=== PATIENT | male | born 2000 | race African-American/Black ===

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

== ENCOUNTER → 2021-03-11 | Outpatient (CLI) | payer OTHER ==
[~2021-03-11] MED LIST: ALBU2.5V8 INH; HYDR-2765 PO
== END ==
LOC: LAB 11:39
PROVIDERS: ATTEND Orthopaedic Surgery
DX: Z01.812 Encounter for preprocedural laboratory examination (principal); S83.281A Other tear of lateral meniscus, current injury, right knee, initial encounter; Z20.822 Contact with and (suspected) exposure to COVID-19; X58.XXXA Exposure to other specified factors, initial encounter; Y93.89 Activity, other specified; Y92.89 Other specified places as the place of occurrence of the external cause; Y99.8 Other external cause status
CPT/HCPCS: U0003; U0005

== ENCOUNTER 2021-03-14 07:15 | Day surgery (SDC) | payer OTHER ==
[~2021-03-14] VITALS: Ht 175.3 cm; Wt 79.0 kg
[~2021-03-14 07:15] MED LIST changes: -ALBU2.5V8 INH; -HYDR-2765 PO; +HYDROmorphone 2 MG/ML VIAL IVP PRN; +IV RINGERS,LACTATED 1000ML 1,000 ML IV SCH; +MORPHINE SULFATE 2 MG/ML INJ. IVP PRN; +PROCHLORPERAZINE 10 MG/2 ML VIAL. IVP PRN; +fentaNYL PF VIAL 100 MCG/2 ML VIAL IVP PRN
[2021-03-14 07:43] VITALS: BP 125/68
[2021-03-14] MEDS ORDERED: ALBU2.5V8 INH (07:48)
[2021-03-14] MEDS ORDERED: HYDR-2765 PO (07:55)
--- NOTE | 2021-03-14 07:56 | DISCH ---
DISCHARGE INSTRUCTIONS Condition on Discharge Condition on Discharge: Stable Activity After Discharge Activity Instructions for Disc: Progressive ambulation Weight Bearing Status after Di: As tolerated Diet after Discharge Diet after Discharge: Regular Wound Incision Care Wound/Incision Care: Ice to area for comfort, Change dressing (Remove dressing in 2 days may then shower no soaking until sutures removed) Contacting the after DC Call your doctor for: Concerns you may have Follow-Up Follow up with: Dr. Madrid or Helene 7-10 days AMRIT MADRID MD Mar 14, 2021 07:56
[2021-03-14] MEDS ORDERED: SEVOFLURANE 61 TO 120 MINUTES. IH ONE (08:15)
[2021-03-14] MEDS ORDERED: MIDAZOLAM HCL/PF 2 MG/2 ML VIAL. ONE (08:15)
[2021-03-14] MEDS ORDERED: fentaNYL PF VIAL 100 MCG/2 ML VIAL ONE (08:15)
[2021-03-14] MEDS ORDERED: PROPOFOL 10 MG/ML (20ML) VIAL. IV ONE (08:16)
[2021-03-14] MEDS ORDERED: ONDANSETRON PF 4 MG/2 ML VIAL. ONE ×2 (08:16)
[2021-03-14] MEDS ORDERED: LIDOCAINE 2% PF 5 ML VIAL. ONE (08:16)
[2021-03-14] MEDS ORDERED: KETOROLAC 30 MG/ML VIAL. ONE (08:16)
[2021-03-14] MEDS ORDERED: DEXAMETHASONE SOD PHOS 4 MG/ML VIAL ONE (08:16)
[2021-03-14] MEDS ORDERED: BUPIVACAINE MPF 0.5% 30 ML VIAL. ONE (10:30)
[2021-03-14] MEDS ORDERED: HYDROcodone/APAP 7.5/325MG 1 TAB TABLET PO ONE (11:00)
[2021-03-14 11:15] VITALS: BP 137/54
--- NOTE | 2021-03-14 11:35 | PDOC4 ---
Operative Note Operative Note Date of surgery: 03/14/2021 Preoperative diagnosis: Right knee lateral meniscus tear Postoperative diagnosis: Same with radial and complex components Operative procedure: Right knee arthroscopy partial lateral meniscectomy Surgeon: [facility] Technician: Shankar steiner Anesthesia: General Estimated blood loss: 5 cc Complications: None Operative indications: Please see my orthopedic clinic note for detailed operative indications and note that we have covered again today the possibility of meniscus repair versus resection of the damaged portion depending on the orientation repair ability and healing capability of the meniscus. Based on the MRI results it is unlikely that the tear is repairable given the radial and complex nature however I told her if there is some portion of it that can be repaired that I would recommend doing so. There is also possibility of continued pain premature degenerative change infection medical or other anes thetic complications among others all her questions were answered and she agrees to proceed with surgical evaluation and treatment Operative text: Patient was identified procedure verified patient placed in the supine position on the operating table. After adequate amounts of general anesthesia were administered the right lower extremity was prepped and draped in standard sterile fashion with a thigh tourniquet. Ligament examination was normal she had full range of motion and after timeout was performed patient procedure identified and verified the right lower extremity was exsanguinated by Esmarch bandage tourniquet inflated to 250 mils of mercury a lateral portal was established medial portal established using spinal needle localization and the knee joint was systematically examined. Patellofemoral articulation was noted to be in excellent condition as was the medial meniscus and cartilage surface medially ACL was also probed and found to be intact. The lateral meniscus was noted to have some free edge fraying in the posterior horn but a large radial and complex tear of the body area which was not repairable and was trimmed back to stable tissue at its rim and radiused appropriately with the arthroscopic punch and shaver to avoid any further stress risers. There was some chondral damage but it did not require further debridement and it was partial-thickness in nature in the area of the meniscus over the lateral aspect of the lateral femoral condyle. Ultimately, about 50 to 60% of the medial rim needed to be excised to achieve stable tissue. Any cartilage fragments were removed with the arthroscopic shaver joint was drained of arthroscopic fluid portals closed with nylon suture and portal and fat pad area was infused with half percent plain Marcaine sterile dressings were applied patient was returned to recovery room in stable condition having tolerated procedure well. Toes were noted to be warm pink following deflation of the tourniquet. Shankar steiner assisted in patient positioning prepping draping positioning and closure and dressings AMRIT NICK MD Mar 14, 2021 11:35
== END 2021-03-14 12:10 | disposition home or self-care (01) ==
LOC: SURG 07:15
PROVIDERS: ATTEND Orthopaedic Surgery
DX: S83.281A Other tear of lateral meniscus, current injury, right knee, initial encounter (principal); J45.909 Unspecified asthma, uncomplicated; Z79.899 Other long term (current) drug therapy; Z98.890 Other specified postprocedural states; X58.XXXA Exposure to other specified factors, initial encounter; Y93.89 Activity, other specified; Y92.89 Other specified places as the place of occurrence of the external cause; Y99.8 Other external cause status
CPT/HCPCS: 29881; 81025; A4930; J0690; J1100; J1885; J2250; J2405; J2704; J3010; J3490